=== PATIENT | female | born 1930 | race Caucasian/White ===

== ENCOUNTER → 2017-03-25 | Outpatient (CLI) | payer OTHER ==
[~2017-03-25] MED LIST: ACETAMINOPHEN325 M1 PO; APAP500 PO; ASPIR 8181 MG PO; AUGMENTIN 875875 MG PO; BACLOFEN 10 MG10 MG PO; BACLOFEN 10MG T10 M1 PO; BACLOFEN 10MG T10 MG PO; BACTRIM 400-801 EACH; BACTRIM DS TAB1 EACH PO; BETHANECHOL CHL50 MG; CARDURA XL8 MG; CARDURA8 MG PO; CIPRO500 MG PO; CIPROFLOXACIN500 M1 PO; CIPROFLOXACIN500 M3 PO; CITROMA296 ML PO; COLACE100 MG PO; COUMADIN 3 MG TA3 MG PO; COUMADIN 5 MG TA5 M1 PO; CULTURELLE KID1 EAC1 PO; CULTURELLE1 EACH PO; DILTIAZEM HCL90 MG PO; FAMOTIDINE PO; FLORASTOR250 MG PO; HYDROCODONE-AP1 EAC6 PO; KEFLEX500 M1 PO; KEFLEX500 MG PO; LASIX 40 MG TAB40 M1; LIDOCAINE1 EACH TOP; LIDODERM 5%1 PATC1 TOP; LOMOTIL TABLET1 EACH PO; MEGACE ES625 MG/5 M PO; MINOCYCLINE HC100 M2 PO; MIRALAX17 GM PO; MULTIVITAMINS; MULTIVITAMINS PO; NORCO 5-325 TA1 EAC1 PO; OMEPRAZOLE40 MG; OMEPRAZOLE40 MG PO; OXYBUTYNIN 5 MG5 M2 PO; PACERONE 200 M200 M1 PO; POTASSIUM20; REGLAN 10 MG TA10 MG PO; RYTHMOL225 MG PO; SENOKOT-S1 TA1 PO; TYLENOL325 MG PO; VANCOCIN HCL125 MG PO; VANCOCIN HCL250 MG PO; VANCOMYCIN PO; VANCOMYCIN100 MG/M1 NG; VANCOMYCIN100 MG/M1 PO; VANCOMYCIN100 MG/ML PO; WOMEN'S DAILY1 EAC2 PO; XARELTO10 MG PO; ZOFRAN ODT4 MG PO; [UNRECOGNIZED DRUG - OTHER] IV
== END ==
LOC: M.LAB 15:54
DX: I48.0 Paroxysmal atrial fibrillation (principal)

== ENCOUNTER → 2018-05-24 | Outpatient (CLI) | payer OTHER ==
[2018-05-24 14:15] LABS: ABSOLUTE EOSINOPHILS 0.2 thou/uL (0.0-0.7); ABSOLUTE LYMPHOCYTES 1.7 thou/uL (0.8-5.3); ABSOLUTE MONOCYTES 0.6 thou/uL (0.0-1.2); ABSOLUTE NEUTROPHILS 2.8 thou/uL (1.6-8.1); BASOPHILS 0.6 %; EOSINOPHILS 3.9 %; HEMATOCRIT 43.5 % (37.0-47.0); HEMOGLOBIN 14.8 gm/dL (12.0-15.0); LYMPHOCYTES 32.4 %; MCH 31.2 pg (26.0-34.0); MCHC 33.9 g/dL (28.0-37.0); MONOCYTES 10.7 %; MPV 6.8 fl. (7.2-11.1); NUCLEATED RBCS 0 /100WBC; PLATELET COUNT* 175 thou/uL (150-400); POLYS 52.4 %; RBC 4.73 mil/uL (4.20-5.00); RDW-CV 12.9 % (10.5-14.5); WBC 5.3 thou/uL (4.0-11.0)
[2018-05-24 14:27] LABS: ALBUMIN 3.2 g/dL (3.4-5.0); CALCIUM 9.3 mg/dL (8.5-10.1); CREATININE 0.3 mg/dL (0.6-1.3); POTASSIUM 4.4 mmol/L (3.5-5.1); TOTAL BILIRUBIN 0.5 mg/dL (<0.1-1.0); TOTAL PROTEIN 6.5 g/dL (6.4-8.2)
== END ==
LOC: M.LAB 13:55
PROVIDERS: Nurse Practitioner Adult Health
DX: Z79.899 Other long term (current) drug therapy (principal)

== ENCOUNTER → 2019-02-08 | Outpatient (CLI) | payer OTHER | LOC: M.LAB 12:42 | DX: I48.0 Paroxysmal atrial fibrillation (principal) ==